=== PATIENT | female | born 1990 | race African-American/Black ===

== ENCOUNTER 2021-04-26 19:47 | Emergency (ER) | payer BC ==
[2021-04-26] MEDS ORDERED: Cyclobenzaprine 10 MG TAB ONE (20:49)
[2021-04-26] MEDS ORDERED: HYDROcodone/Acetaminophen 5/325 mg Tablet ONE (20:49)
[2021-04-26] MEDS ORDERED: Ketorolac Tromethamine 60 MG/2 ML VIAL ONE (20:49)
== END 2021-04-26 21:15 | disposition home or self-care (01) ==
LOC: MADERS 19:47
DX: S39.012A Strain of muscle, fascia and tendon of lower back, initial encounter (principal); Z87.442 Personal history of urinary calculi
CPT/HCPCS: 96372; 99283; J1885